=== PATIENT | female | born 1990 | race American Indian/Alaskan Native ===

== ENCOUNTER 2016-10-06 17:16 | Emergency (ER) | payer OTHER ==
[2016-10-06 17:32] VITALS: TEMP 98; O2SAT 98
[2016-10-06] MEDS ORDERED: Naproxen 550 mg Tab PO STA (17:50)
[2016-10-06] MEDS ORDERED: Naproxen 550 mg Tab PO ONE (17:59)
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
[2016-10-06 18:37] VITALS: BP 110/68; PULSE 75; RESP 18
--- NOTE | 2016-10-07 10:43 | RAD ---
HISTORY: COMPARISON: Upper TECHNIQUE: Chest PA and lateral FINDINGS: LINES AND TUBES: The lungs are well inflated and clear. LUNG AND PLEURA: Lungs are clear. There are no pleural effusions or pneumothorax. HEART AND MEDIASTINUM: The heart is not enlarged. The hilar and mediastinal contours are within normal limits. SKELETAL STRUCTURES: The bony structures are within normal limits for the patient's age. VISUALIZED UPPER ABDOMEN: Normal. OTHER FINDINGS: None. IMPRESSION: No acute findings.
--- NOTE | 2016-10-07 11:11 | RAD ---
PROCEDURE: Cervical Spine Radiographs. HISTORY: Pain. COMPARISON: None. FINDINGS: BONES: There is normal alignment of the cervical vertebral bodies. Cervical lordosis is maintained. Vertebral bodies are normal in height. Bone mineralization is normal. There is no acute fracture or spondylolisthesis. The craniocervical junction is normal. The atlantoaxial joint is normal DISC SPACES: Normal. SOFT TISSUES: Normal. No prevertebral soft tissue swelling. OTHER FINDINGS: None. IMPRESSION: Normal examination.
== END 2016-10-06 18:37 | disposition home or self-care (01) ==
LOC: C.ER 17:16
DX: S43.401A Unspecified sprain of right shoulder joint, initial encounter (principal); S13.9XXA Sprain of joints and ligaments of unspecified parts of neck, initial encounter; V89.2XXA Person injured in unspecified motor-vehicle accident, traffic, initial encounter